=== PATIENT | female | born 1975 | race Caucasian/White ===

== ENCOUNTER → 2024-01-29 10:52 | Outpatient (REF) | payer BC, SELFPAY | LOC: REG 10:52 | PROVIDERS: ATTENDING PHYSICIAN Nurse Practitioner Family | DX: R07.9 Chest pain, unspecified (principal) | CPT/HCPCS: 71046; 93005 ==

== ENCOUNTER → 2024-05-02 11:04 | Outpatient (REF) | payer BC, SELFPAY | LOC: RCS 11:04 | PROVIDERS: ATTENDING PHYSICIAN Nurse Practitioner Family; REFERRING PHYSICIAN Internal Medicine Cardiovascular Disease | DX: R07.9 Chest pain, unspecified (principal) | CPT/HCPCS: 93017 ==

== ENCOUNTER → 2024-05-04 07:09 | Outpatient (REF) | payer BC, SELFPAY | LOC: RCS 07:09 | PROVIDERS: ATTENDING PHYSICIAN Internal Medicine Cardiovascular Disease; FAMILY PHYSICIAN Family Medicine | DX: Q23.1 Congenital insufficiency of aortic valve (principal) | CPT/HCPCS: 93306 ==

== ENCOUNTER → 2024-10-03 22:00 | Outpatient (REF) | payer OTHER, SELFPAY | LOC: DHSLP 22:00 | PROVIDERS: ATTENDING PHYSICIAN Nurse Practitioner Family | DX: G47.33 Obstructive sleep apnea (adult) (pediatric) (principal) | CPT/HCPCS: 95800 ==